=== PATIENT | male | born 1975 | race Caucasian/White ===

== ENCOUNTER 2016-08-18 21:35 | Emergency (ER) | payer BC ==
[2016-08-18 21:46] VITALS: BP 138/82; PULSE 53; RESP 18; TEMP 97.4
--- NOTE | 2016-08-18 22:21 | ED ---
Skin/Abscess/FB HPI - General Chief complaint: Skin/Abscess/Foreign Body Stated complaint: Finger infection Time Seen by Provider: 08/18/16 21:51 Source: patient, RN notes reviewed, old records reviewed Mode of arrival: ambulatory Limitations: no limitations - History of Present Illness Initial comments: Patient is a 41-year-old male with chief complaint of left fourth finger swelling and pain for approximately 3 days. Patient is a slight hesitancy of infection. Patient reports he's had no fever or chills. He has normal range of motion of the finger. Patient states he's never had an issue with this before. Patient reports that he is right-handed. 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.Patient denies any recent fever, chills, shortness of breath, chest pain, back pain, abdominal pain, nausea vomiting, numbness or tingling, dysuria or hematuria, constipation or diarrhea, headaches or visual changes, or any other current symptoms - Related Data Home Medications Medication Instructions Recorded Confirmed Olmesartan [Benicar] 10 mg PO DAILY 07/24/15 08/18/16 Previous Rx's Medication Instructions Recorded Amoxic-Pot Clav 875-125Mg 1 tab PO Q12HR #20 tablet 08/18/16 [Augmentin 875-125] Allergies Allergy/AdvReac Type Severity Reaction Status Date / Time Sulfa (Sulfonamide Allergy Unknown Verified 08/18/16 21:44 Antibiotics) Review of Systems ROS Statement: Those systems with pertinent positive or pertinent negative responses have been documented in the HPI. ROS Other: All systems not noted in ROS Statement are negative. Past Medical History Past Medical History: Hypertension, Thyroid Disorder History of Any Multi-Drug Resistant Organisms: None Reported Past Surgical History: No Surgical Hx Reported Past Psychological History: No Psychological Hx Reported Smoking Status: Never smoker Past Alcohol Use History: None Reported Past Drug Use History: None Reported General Exam - General Exam Comments Initial Comments: Well-appearing 41-year-old male. No distress. General: Well appearing, well nourished, in no distress. Oriented x 3, normal mood and affect . Ambulating without difficulty. Skin: Good turgor, no rash, unusual bruising or prominent lesions Hair: Normal texture and distribution. HEENT: Head: Normocephalic, atraumatic, no visible or palpable masses, depressions, or scaring. Eyes: Visual acuity intact, conjunctiva clear, sclera non-icteric, EOM intact, PERRL. Ears: hearing intact. Nose: No external lesions, mucosa non-inflamed, septum and turbinates normal Mouth: Mucous membranes moist, no mucosal lesions. Teeth/Gums: No obvious caries or periodontal disease. Neck: Supple, without lesions, bruits, or adenopathy, thyroid non-enlarged and non-tender Heart: No cardiomegaly or thrills; regular rate and rhythm, no murmur or gallop Lungs: Clear to auscultation and percussion Abdomen: Bowel sounds normal, no tenderness, organomegaly, masses, or hernia Back: Spine normal without deformity or tenderness, no CVA tenderness Extremities: Swelling and erythema over the distal left fourth finger. Swelling is consistent with a paronychia. Musculoskeletal: Normal gait and station. No misalignment, asymmetry, crepitation, defects, tenderness, masses, effusions, decreased range of motion, instability, atrophy or abnormal strength or tone in the head, neck, spine, ribs , pelvis or extremities. Neurologic: CN 2-12 normal. Sensation to pain, touch, and proprioception normal. DTRs normal in upper and lower extremities. No pathologic reflexes. Psychiatric: Oriented X3, intact recent and remote memory, judgment and insight , normal mood and affect. Limitations: no limitations Course Vital Signs 08/18/16 21:44 Temperature 97.4 F L Pulse Rate 53 L Respiratory 18 Rate Blood Pressure 138/82 O2 Sat by Pulse 99 Oximetry Procedures - Incision & Drainage Time Out Performed?: Yes Site: hand (Left distal fourth finger.) Size (cm): 1 Anesthetic Used: benzocaine 0.25% Amount (mLs): 4 (nerve block) I&D Cleaning Method: Betadine Sterile Field Used?: Yes Scalpel Used: #11 Irrigation Performed?: No I&D Drainage Obtained: Blood Culture Obtained?: No Patient Tolerated Procedure: well, no complications Medical Decision Making - Medical Decision Making Patient is a 41-year-old male with a paronychia over the left fourth finger. Patient was given a digital block and incision and drainage is completed. Very little pus was able to be drained. Patient will be started on Augmentin this is likely related to a nail biting injury. Patient agrees to completely antibiotics and follow-up with primary care provider. Discussed returning if he gets worse. Patient understands treatment plan will comply. Disposition Clinical Impression: Paronychia Disposition: HOME SELF-CARE Condition: Good Instructions: Paronychia (ED) Additional Instructions: Patient advised to do warm soaks 3 times a day for the next few days. Keep the wound covered. Follow-up with primary care provider if symptoms continue to persist. Patient advised also complete entire antibiotic prescription. Prescriptions: Amoxic-Pot Clav 875-125Mg [Augmentin 875-125] 1 tab PO Q12HR #20 tablet Referrals: Froilan Michelle MD [Primary Care Provider] - 1-2 days Time of Disposition: 22:20
== END 2016-08-18 22:40 | disposition home or self-care (01) ==
LOC: EC 21:35
DX: L03.012 Cellulitis of left finger (principal); I10 Essential (primary) hypertension; Z79.899 Other long term (current) drug therapy; Z88.2 Allergy status to sulfonamides
CPT/HCPCS: 10060; 99283

== ENCOUNTER 2018-07-31 12:49 | Emergency (ER) | payer BC, OTHER ==
[2018-07-31 13:06] VITALS: BP 134/78; PULSE 54; RESP 18; TEMP 98.3
[2018-07-31] MEDS ORDERED: DIPH,PERTUS(ACELL)TETVAC-LF 0.5 ML VIAL IM ONE (13:43)
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
== END 2018-07-31 14:20 | disposition home or self-care (01) ==
LOC: EC 12:49
DX: S61.200A Unspecified open wound of right index finger without damage to nail, initial encounter (principal); Z23 Encounter for immunization; I10 Essential (primary) hypertension; Z79.899 Other long term (current) drug therapy; Z88.2 Allergy status to sulfonamides; W26.8XXA Contact with other sharp object(s), not elsewhere classified, initial encounter; Y92.69 Other specified industrial and construction area as the place of occurrence of the external cause; Y99.0 Civilian activity done for income or pay
CPT/HCPCS: 90471; 90715; 99282

== ENCOUNTER → 2020-08-05 | Outpatient (CLI) | payer BC ==
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
== END | disposition home or self-care (01) ==
LOC: RADXRMAIN 10:30
PROVIDERS: ATTEND Internal Medicine
DX: R07.81 Pleurodynia (principal)

== ENCOUNTER 2021-07-07 17:43 | Emergency (ER) | payer BC, OTHER ==
[2021-07-07 18:20] VITALS: BP 139/79; PULSE 53; RESP 20; TEMP 98.2
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
== END 2021-07-07 22:17 | disposition home or self-care (01) ==
LOC: EC 17:43
DX: Z04.2 Encounter for examination and observation following work accident (principal); I10 Essential (primary) hypertension; W19.XXXA Unspecified fall, initial encounter; Y92.512 Supermarket, store or market as the place of occurrence of the external cause
CPT/HCPCS: 73502; 99283

== ENCOUNTER → 2021-07-15 | Outpatient (CLI) | payer OTHER ==
--- NOTE | 2021-07-15 12:25 | MR ---
EXAMINATION TYPE: MR shoulder RT wo con DATE OF EXAM: 07/15/2021 11:57 AM COMPARISON: NONE HISTORY: Rt shoulder pain TECHNIQUE: Multiplanar multispin echo imaging of the right shoulder was performed. FINDINGS: Rotator cuff : There is no complete or bursal/articular sided partial rotator cuff tear. The subscapu jeniffer constituent of the rotator cuff is intact. Mild tendinosis of the supraspinatus tendon and subs capularis tendon. Bursa: No bursal effusion or thickening is seen. Musculature: There is no muscular tear, contusion, or atrophy. Acromioclavicular joint : There are mild degenerative changes of the acromioclavicular joint. There is no anterior or lateral acromial downsloping. Osseous structures : There are no fractures or regions of abnormal bone marrow signal intensity. Long biceps tendon : The biceps tendon is normally situated within the bicipital groove. No complete or partial biceps tendon tear is present. Glenohumeral Joint fluid : There is no glenohumeral joint effusion. Cartilage and Bone : No focal hyaline cartilage defects are noted. No Hill-Sachs, reverse Hill-Sachs, or bony Bankart lesions are seen. Labrum : There are no SLAP or soft tissue Bankart lesions. No paralabral cysts are seen. OTHER FINDINGS : none IMPRESSION: 1. Mild tendinosis of the supraspinatus tendon and subscapularis tendon.
== END | disposition home or self-care (01) ==
LOC: RADMRIMAIN 10:46
PROVIDERS: ATTEND Emergency Medicine
DX: S40.011D Contusion of right shoulder, subsequent encounter (principal); S70.02XD Contusion of left hip, subsequent encounter; S50.02XD Contusion of left elbow, subsequent encounter; S80.01XD Contusion of right knee, subsequent encounter; M67.813 Other specified disorders of tendon, right shoulder; X58.XXXD Exposure to other specified factors, subsequent encounter

== ENCOUNTER → 2021-10-16 | Outpatient (CLI) | payer OTHER ==
--- NOTE | 2021-10-16 16:30 | XR ---
Left wrist and left hand HISTORY: Trauma and pain 4 views of left wrist, 3 views the left hand There is a minimally displaced intra-articular fracture involving the proximal aspect of the proximal phalanx of the first digit of the left hand. Bone mineralization, joint spaces and alignment are oth erwise maintained. IMPRESSION: Skier's thumb, fracture as described
== END | disposition home or self-care (01) ==
LOC: RADXRMAIN 15:58
PROVIDERS: ATTEND Emergency Medicine
DX: S62.611A Displaced fracture of proximal phalanx of left index finger, initial encounter for closed fracture (principal)

== ENCOUNTER 2022-03-15 09:48 | Emergency (ER) | payer BC, OTHER ==
[2022-03-15 10:13] VITALS: BP 142/89; PULSE 75; RESP 20; TEMP 98.5
[2022-03-15] MEDS ORDERED: DIPH,PERTUS(ACELL)TETVAC-LF 0.5 ML VIAL IM ONE (10:27)
--- NOTE | 2022-03-15 10:33 | ED ---
Recheck HPI - General Chief Complaint: Needlestick/Exposure Stated Complaint: Needle stick Time Seen by Provider: 03/15/22 10:15 Source: patient, RN notes reviewed Mode of arrival: ambulatory Limitations: no limitations - History of Present Illness Initial Comments: Patient is a 47-year-old male presenting to the emergency room after an accidental needle stick while at work as a [employer] today. He reports that the needle he was stuck with was a small gauge bent needle likely utilized for illicit drug injection. He reports a small poke to his distal left index finger in which he had to squeeze to elicit blood from the site. He reports that he immediately washed the site. He is anxious regarding his potential exposure to blood-borne pathogens. He denies any other complaints or concerns at this time. He has past medical history significant for hypertension and hypothyroidism. - Related Data Home Medications Medication Instructions Recorded Confirmed Olmesartan [Benicar] 10 mg PO DAILY 07/24/15 08/18/16 Previous Rx's Medication Instructions Recorded Amoxic-Pot Clav 875-125Mg 1 tab PO Q12HR #20 tablet 08/18/16 [Augmentin 875-125] Allergies Allergy/AdvReac Type Severity Reaction Status Date / Time Sulfa (Sulfonamide Allergy Unknown Verified 03/15/22 10:13 Antibiotics) Review of Systems ROS Statement: Those systems with pertinent positive or pertinent negative responses have been documented in the HPI. ROS Other: All systems not noted in ROS Statement are negative. Past Medical History Past Medical History: Hypertension, Thyroid Disorder History of Any Multi-Drug Resistant Organisms: None Reported Past Surgical History: No Surgical Hx Reported Past Psychological History: No Psychological Hx Reported Smoking Status: Current some day smoker Past Alcohol Use History: None Reported Past Drug Use History: None Reported General Exam Limitations: no limitations General appearance: alert, in no apparent distress Head exam: Present: atraumatic, normocephalic, normal inspection Eye exam: Present: normal appearance, PERRL, EOMI. Absent: scleral icterus, conjunctival injection, periorbital swelling ENT exam: Present: normal exam, mucous membranes moist Neck exam: Present: normal inspection, full ROM Respiratory exam: Absent: respiratory distress, accessory muscle use Cardiovascular Exam: Present: regular rate GI/Abdominal exam: Absent: distended Extremities exam: Present: normal inspection. Absent: tenderness, pedal edema, joint swelling Back exam: Present: normal inspection Neurological exam: Present: alert, oriented X3, CN II-XII intact Psychiatric exam: Present: normal affect, normal mood Skin exam: Present: other (Puncture wound to left index finger unable to visualize skin defect no bleeding or drainage noted.) Course Vital Signs 03/15/22 10:10 Temperature 98.5 F Pulse Rate 75 Respiratory 20 Rate Blood Pressure 142/89 O2 Sat by Pulse 99 Oximetry Medical Decision Making - Medical Decision Making 47-year-old male presenting to the emergency room after external needlestick with a small gauge bent needle likely utilized for illicit drug use. Will obtain baseline exposure labs. Discussed risks benefits of antiviral therapy. Given small gauge needle with no significant known blood exposure low risk of exposure to blood-borne illnesses patient illicit to defer antiviral treatment at this time. Will discharge back to work in stable condition with post exposure protocols and recommendations. Case discussed with Dr. Hernandez. - Lab Data Lab Results 03/15/22 Range/Units 10:40 Hep Bs Antigen Nonreactive (Nonreactive) Hep Bs Antibody Reactive A (Nonreactive) Hep Bs Antibody, Quant 76.1 mIU/mL Hep C IgG Ab Nonreactive (Nonreactive) Disposition Clinical Impression: Needle stick injury of finger Disposition: HOME SELF-CARE Condition: Stable Instructions (If sedation given, give patient instructions): Needle Stick Injuries (ED) Additional Instructions: Please follow-up with your primary care provider regarding serial postexposure HIV and hepatitis testing. Please return to the Emergency Department if symptoms worsen or any other concerns. Is patient prescribed a controlled substance at d/c from ED?: No Referrals: Thony Watt MD [Primary Care Provider] - 1-2 days Time of Disposition: 10:32
[2022-03-15 15:49] LABS: Hepatitis B Surface AB- Quant 76.1 mIU/mL; Hepatitis B Surface Antibody Reactive (Nonreactive); Hepatitis B Surface Antigen Nonreactive (Nonreactive); Hepatitis C IgG Antibody Nonreactive (Nonreactive)
== END 2022-03-15 11:10 | disposition home or self-care (01) ==
LOC: EC 09:48
DX: S69.92XA Unspecified injury of left wrist, hand and finger(s), initial encounter (principal); Z23 Encounter for immunization; I10 Essential (primary) hypertension; E07.9 Disorder of thyroid, unspecified; F17.200 Nicotine dependence, unspecified, uncomplicated; Z88.2 Allergy status to sulfonamides; Z79.84 Long term (current) use of oral hypoglycemic drugs; W46.1XXA Contact with contaminated hypodermic needle, initial encounter
CPT/HCPCS: 36415; 86706; 86803; 87340; 87390; 90471; 90715; 99283

== ENCOUNTER 2022-12-20 10:54 | Emergency (ER) | payer OTHER, BC ==
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
[2022-12-20 12:42] VITALS: TEMP 98.4
[2022-12-20 12:43] VITALS: BP 136/72; PULSE 82; RESP 16
[2022-12-20 17:50] LABS: Hepatitis B Surface Antigen Nonreactive; Hepatitis C IgG Antibody Nonreactive
[2022-12-20 19:21] LABS: Hepatitis B Surface AB- Quant 76.1 mIU/mL
[2022-12-20 20:23] LABS: HIV 2 AB Non-Reactive (Non-Reactive); HIV AB P24 Non-Reactive (Non-Reactive); HIV P24 AG Non-Reactive (Non-Reactive)
== END 2022-12-20 12:00 | disposition home or self-care (01) ==
LOC: EC 10:54
DX: Z77.21 Contact with and (suspected) exposure to potentially hazardous body fluids (principal); I10 Essential (primary) hypertension; F17.200 Nicotine dependence, unspecified, uncomplicated; Z79.899 Other long term (current) drug therapy; Z88.2 Allergy status to sulfonamides
CPT/HCPCS: 36415; 86706; 86803; 87340; 87390; 99283

== ENCOUNTER → 2023-06-27 | Outpatient (CLI) | payer BC ==
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
== END | disposition home or self-care (01) ==
LOC: RADUSWWP 14:49
PROVIDERS: ATTEND Internal Medicine
DX: R25.2 Cramp and spasm (principal)
CPT/HCPCS: 93922